=== PATIENT | male | born 1950 ===

== ENCOUNTER 2020-05-22 10:16 | Emergency (ER) | payer OTHER ==
[~2020-05-22] VITALS: Ht 167.6 cm; Wt 88.5 kg
[~2020-05-22 10:16] MED LIST: LIALDA1.2 G; VALSARTAN-HCTZ1 EAC4
[2020-05-22] MEDS ORDERED: XELJANZ5 MG (10:22)
[2020-05-22] MEDS ORDERED: IRBESARTAN-HCT1 EACH (10:22)
[2020-05-22] MEDS ORDERED: AMLODIPINE-OLM1 EAC2 (10:23)
[2020-05-22] MEDS ORDERED: CRESTOR10 MG (10:23)
== END 2020-05-22 13:21 | disposition home or self-care (01) ==
LOC: ER 10:16
DX: H00.14 Chalazion left upper eyelid (principal); M54.5 Low back pain